=== PATIENT | male | born 1975 | race Caucasian/White ===

== ENCOUNTER 2025-08-09 09:02 | Outpatient (CLI) | payer OTHER | END 2025-08-09 09:03 | disposition home or self-care (01) | LOC: BICCT 09:02 | PROVIDERS: ATTEND Family Medicine | DX: E78.5 Hyperlipidemia, unspecified (principal); I25.10 Atherosclerotic heart disease of native coronary artery without angina pectoris | CPT/HCPCS: 75571 ==